=== PATIENT | female | born 1990 | race Caucasian/White ===

== ENCOUNTER 2020-08-15 11:24 | Inpatient (IN) | payer SELFPAY ==
[~2020-08-15] VITALS: Ht 162.6 cm; Wt 74.4 kg
[2020-08-15] MEDS: LACTATED RINGERS 1,000 ML IV SCH ×2 (13:30→21:31)
[2020-08-15] MEDS ORDERED: NALOXONE HCL 0.4 MG/ML 1ML VIAL IM PRN (13:45)
[2020-08-15] MEDS ORDERED: MISOPROSTOL 100MCG TABLET VG SCH (13:45)
[2020-08-15] MEDS ORDERED: METHYLERGONOVINE MALEATE 0.2 MG/ML IM PRN (13:45)
[2020-08-15] MEDS ORDERED: DEXT 5%/LR + PITOCIN 20UNITS/L 1,000 ML IV SCH (13:45)
[2020-08-15] MEDS ORDERED: BUTORPHANOL TARTRATE 2 MG/ML VIAL IV PRN (13:45)
[2020-08-15] MEDS ORDERED: CARBOPROST TROMETHAMINE 250 MCG/ML AMPUL IM PRN (13:45)
[2020-08-15] MEDS ORDERED: LIDOCAINE HCL 1% 20ML VIAL (Pyxis) INJ INFIL SCH (13:45)
[2020-08-15] MEDS ORDERED: AMPICILLIN 2GM in NS 100ML 100 ML IV SCH (14:00)
[2020-08-15 15:12] LABS: INR 0.9; PARTIAL THROMBOPLASTIN TIME 25.8 sec (23.4-31.0); PROTHROMBIN TIME 9.5 sec (9.6-11.0)
[2020-08-15 15:14] LABS: BASOPHILS % 0.2 % (0.0-2.0); EOSINOPHILS % 0.4 % (0.0-5.0); HEMATOCRIT. 39.3 % (36.0-48.0); HEMOGLOBIN. 13.5 g/dL (12.0-16.0); LYMPHOCYTES % 23.4 % (20.0-50.0); MEAN CORPUSCULAR HEMOGLOBIN 30.6 pg (28.0-32.0); MEAN PLATELET VOLUME 8.9 fl (7.4-10.4); MONOCYTES % 4.5 % (2.0-8.0); NEUTROPHILS % 71.5 % (40.0-76.0); PLATELET 189 x1000/uL (130-400); RED BLOOD CELL COUNT 4.41 mill/uL (4.2-5.4); RED CELL DISTRIBUTION WIDTH 12.7 % (11.6-14.6)
[2020-08-15 15:33] LABS: HEPATITIS B SURFACE ANTIGEN NEGATIVE
[2020-08-15] MEDS ORDERED: AMPICILLIN 1,000 MG in SODIUM CHLORIDE 0.9% 50 ML IV SCH (20:00)
[2020-08-16] MEDS: LACTATED RINGERS 1,000 ML IV SCH ×2 (00:11→03:39)
[2020-08-16] MEDS ORDERED: FENTANYL CITRATE/PF 50MCG/ML 2ML VIAL ONE (02:47)
[2020-08-16] MEDS ORDERED: SODIUM CHLORIDE 0.9% 10ML VIAL ONE ×2 (02:48→04:28)
[2020-08-16] MEDS ORDERED: BUPIVACAINE HCL/PF 0.25% (2.5MG/ML) 10ML ONE ×2 (02:48→04:21)
[2020-08-16] MEDS ORDERED: EPHEDRINE SULFATE 50MG/ML VIAL ONE (02:49)
[2020-08-16] MEDS ORDERED: ROPIVACAINE HCL/PF 0.2% (2MG/ML) EPID 200ML EPI SCH (03:15)
[2020-08-16] MEDS ORDERED: CITRIC ACID/SODIUM CITRATE SOLN 30ML UDC PO SCH (03:45)
[2020-08-16] MEDS ORDERED: CEFAZOLIN SODIUM 1000MG/VIAL ONE (04:28)
[2020-08-16] MEDS ORDERED: OXYTOCIN 10 UNITS/ML 1ML ONE (04:31)
[2020-08-16] MEDS ORDERED: MORPHINE SULFATE/PF 1MG/ML 10ML AMP ONE (04:35)
[2020-08-16] MEDS ORDERED: METOCLOPRAMIDE HCL 10MG/2ML VIAL ONE (04:46)
[2020-08-16] MEDS ORDERED: IBUPROFEN 400MG TABLET PO PRN (07:45)
[2020-08-16] MEDS ORDERED: HEMORRHOIDAL SUPP PR PRN (07:45)
[2020-08-16] MEDS ORDERED: DEXT 5%/LR + PITOCIN 20UNITS/L 1,000 ML IV SCH (07:45)
[2020-08-16 08:00] VITALS: BP 116/70
[2020-08-16 10:19] LABS: BASOPHILS % 0.2 % (0.0-2.0); HEMATOCRIT. 34.1 % (36.0-48.0); HEMOGLOBIN. 11.7 g/dL (12.0-16.0); LYMPHOCYTES % 12.6 % (20.0-50.0); MEAN CORPUSCULAR HEMOGLOBIN 30.4 pg (28.0-32.0); MEAN CORPUSCULAR VOLUME 88.3 fL (81.0-99.0); MEAN PLATELET VOLUME 8.9 fl (7.4-10.4); MONOCYTES % 5.8 % (2.0-8.0); NEUTROPHILS % 81.4 % (40.0-76.0); PLATELET 169 x1000/uL (130-400); RED BLOOD CELL COUNT 3.86 mill/uL (4.2-5.4); RED CELL DISTRIBUTION WIDTH 12.7 % (11.6-14.6)
[2020-08-16 10:26] LABS: CHLORIDE 108 mEq/L (98-107)
[2020-08-16 16:00] VITALS: BP 112/72
[2020-08-16 20:29] VITALS: BP 101/70
[2020-08-16] MEDS: IBUPROFEN 800MG TABLET PO PRN (21:31)
[2020-08-17 00:54] VITALS: BP 107/72
[2020-08-17 05:30] VITALS: BP 106/72
[2020-08-17 08:00] VITALS: BP 98/59
[2020-08-17] MEDS ORDERED: HYDROCODONE/ACETAMINOPHEN 5/325MG TABLET PO PRN (09:00)
[2020-08-17] MEDS: FERROUS SULFATE 325MG TABLET PO SCH ×2 (10:29→17:22)
[2020-08-17] MEDS: SIMETHICONE 80MG TABLET CHEW PO SCH ×3 (10:30→21:16)
[2020-08-17] MEDS: MAGNESIUM/ALUMINUM HYDROXIDE/SIMETHICONE 30ML UDC PO SCH ×3 (10:30→21:16)
[2020-08-17] MEDS: IBUPROFEN 800MG TABLET PO PRN ×2 (10:31→17:22)
[2020-08-17 16:30] VITALS: BP 108/71
[2020-08-17 18:20] LABS: BASOPHILS % 0.1 % (0.0-2.0); EOSINOPHILS % 0.7 % (0.0-5.0); HEMATOCRIT. 32.8 % (36.0-48.0); HEMOGLOBIN. 11.3 g/dL (12.0-16.0); MEAN CORPUSCULAR HEMOGLOBIN 30.9 pg (28.0-32.0); MEAN CORPUSCULAR VOLUME 89.6 fL (81.0-99.0); MEAN PLATELET VOLUME 8.9 fl (7.4-10.4); MONOCYTES % 5.1 % (2.0-8.0); NEUTROPHILS % 77.1 % (40.0-76.0); PLATELET 196 x1000/uL (130-400); RED BLOOD CELL COUNT 3.66 mill/uL (4.2-5.4); RED CELL DISTRIBUTION WIDTH 12.6 % (11.6-14.6)
[2020-08-17 20:50] VITALS: BP 106/71
[2020-08-18] MEDS ORDERED: IBUP-2030 PO (03:19)
[2020-08-18 05:00] VITALS: BP 123/75
[2020-08-18] MEDS ORDERED: BISACODYL 10MG SUPP PR PRN (05:00)
[2020-08-18 08:00] VITALS: BP 106/58
== END 2020-08-18 15:20 | disposition home or self-care (01) | DRG 560 ==
LOC: 8 EST LDRP 11:24 → OBSVTOIN 11:24 → 8 EST A/PP 08-16 07:04 → 8EST 08-17 17:25
PROVIDERS: ADMIT Obstetrics & Gynecology; ATTEND Obstetrics & Gynecology
PROC: 10E0XZZ Delivery of Products of Conception, External Approach (ICD-10-PCS; principal; 2020-08-16)
DX: O34.219 Maternal care for unspecified type scar from previous cesarean delivery (principal); Z20.822 Contact with and (suspected) exposure to COVID-19; Z37.0 Single live birth; Z3A.39 39 weeks gestation of pregnancy; Z98.51 Tubal ligation status
CPT/HCPCS: 36415; 76805; 76818; 80051; 80053; 85025; 86592; 86703; 86762; 86850; 86900; 87340; 87426; 88307; 99281; J0290; J0690; J2274; J2590; J2765; J3010; J3490; J7120